=== PATIENT | male | born 1950 | race Two or more races ===

== ENCOUNTER → 2021-09-01 | Emergency (ER) | payer OTHER ==
[~2021-09-01] VITALS: Ht 170.2 cm; Wt 77.1 kg
[~2021-09-01] MED LIST: GLUMETZA500 MG; LIPITOR40 M1
== END | disposition home or self-care (01) ==
LOC: ER 17:58
DX: M76.52 Patellar tendinitis, left knee (principal); E11.9 Type 2 diabetes mellitus without complications; Z79.84 Long term (current) use of oral hypoglycemic drugs; I10 Essential (primary) hypertension

== ENCOUNTER 2022-07-17 16:36 | Emergency (ER) | payer OTHER ==
[~2022-07-17] VITALS: Ht 165.1 cm; Wt 73.0 kg
== END 2022-07-17 20:32 | disposition left against medical advice (07) ==
LOC: ER 16:36
DX: R49.0 Dysphonia (principal); E11.9 Type 2 diabetes mellitus without complications; Z79.84 Long term (current) use of oral hypoglycemic drugs; E78.00 Pure hypercholesterolemia, unspecified; I10 Essential (primary) hypertension